=== PATIENT | male | born 1995 | race Caucasian/White ===

== ENCOUNTER 2017-02-25 03:30 | Emergency (ER) | payer BC ==
[~2017-02-25] VITALS: Ht 180.3 cm; Wt 79.4 kg
[2017-02-25] MEDS ORDERED: NS IV 1000 ML 1,000 ML IV ONE (03:42)
[2017-02-25] MEDS ORDERED: CITA10TA12 PO (03:43)
[2017-02-25] MEDS ORDERED: ONDANSETRON 4 MG/2 ML (SDV) Z0FRAN IVP ONE (03:45)
[2017-02-25 03:57] LABS: BASOPHILS % (AUTO) 0 % (0-10); EOSINOPHILS % (AUTO) 0 % (0-10); LYMPHOCYTES # (AUTO) 2.1 X 10^3 (1.0-4.0); LYMPHOCYTES % (AUTO) 23 % (12-44); MEAN CORPUSCULAR HEMOGLOBIN 29 PG (25-34); MEAN CORPUSCULAR HGB CONC 35 G/DL (32-36); MEAN CORPUSCULAR VOLUME 80 FL (80-99); MEAN PLATELET VOLUME 10.6 FL (7.4-10.4); MONOCYTES # (AUTO) 0.4 X 10^3 (0.0-1.0); MONOCYTES % (AUTO) 5 % (0-12); NEUTROPHILS # (AUTO) 6.7 X 10^3 (1.8-7.8); NEUTROPHILS % (AUTO) 72 % (42-75); PLATELET COUNT 281 10^3/uL (130-400); RED BLOOD COUNT 5.13 10^6/uL (4.35-5.85); RED CELL DISTRIBUTION WIDTH 12.7 % (10.0-14.5); WHITE BLOOD COUNT 9.3 10^3/uL (4.3-11.0)
[2017-02-25] MEDS ORDERED: LORazepam INJ 2 MG/ML (ATIVAN) VIAL IVP ONE (04:00)
--- NOTE | 2017-02-25 04:11 | ED Psychosocial ---
General Chief Complaint: Psych/Social Disorder Stated Complaint: COMBINED MED & ALCOHOL,HAVING RXN Nursing Triage Note: C/O ANXIETY /P ETOH INTAKE WITH CELEXA Source: patient Exam Limitations: no limitations History of Present Illness Time seen by provider: 03:32 Initial Comments This 22-year-old male patient presents to the emergency room with anxiousness and hyperventilation after drinking an excessive amount of beer and hard alcoholic mixed drinks while taking Celexa. He also has nausea and vomiting. He takes the Celexa for depression, anxiety, and neurologic tics. Allergies and Home Medications Allergies Coded Allergies: No Known Drug Allergies (Unverified , 02/25/17) Home Medications Citalopram Hydrobromide 10 Mg Tablet, Unknown Dose PO, (Reported) Constitutional: no symptoms reported EENTM: no symptoms reported Respiratory: no symptoms reported Cardiovascular: no symptoms reported Gastrointestinal: see HPI Genitourinary: no symptoms reported Musculoskeletal: no symptoms reported Skin: no symptoms reported Psychiatric/Neurological: See HPI Past [id number] Hx Patient Social History Alcohol Use: Rarely Uses Recreational Drug Use: No Smoking Status: Never a Smoker 2nd Hand Smoke Exposure: Yes Recent Foreign Travel: No Contact w/Someone Who Travel: No Recent Infectious Disease Expo: No Recent Hopitalizations: No Immunizations Up To Date Tetanus Booster (TDap): Less than 5yrs PED Vaccines UTD: Yes Seasonal Allergies Seasonal Allergies: No Surgeries HX Surgeries: Yes Surgeries: Appendectomy, Tonsillectomy Respiratory Hx Respiratory Disorders: No Cardiovascular Hx Cardiac Disorders: No Neurological Hx Neurological Disorders: Yes (tics) Genitourinary Hx Genitourinary Disorders: No Gastrointestinal Hx Gastrointestinal Disorders: No Musculoskeletal Hx Musculoskeletal Disorders: No Endocrine Hx Endocrine Disorders: No HEENT HX ENT Disorders: No Cancer Hx Cancer: No Psychosocial Hx Psychiatric Problems: Yes Behavioral Health Disorders: Anxiety, Depression Integumentary HX Skin/Integumentary Disorder: No Blood Transfusions Hx Blood Disorders: No Physical Exam Vital Signs Vital Sign - Last 12Hours 02/25/17 03:43 Temp 97.9 Pulse 81 Resp 24 B/P (MAP) 125/62 Pulse Ox 99 O2 Delivery Room Air Capillary Refill : Less Than 3 Seconds General Appearance: WD/WN, moderate distress (rather anxious) HEENT: PERRL/EOMI, normal ENT inspection Neck: normal inspection Respiratory: lungs clear, normal breath sounds, no respiratory distress, no accessory muscle use Cardiovascular: regular rate, rhythm, no edema, no murmur Gastrointestinal: non tender, soft Extremities: normal inspection, no pedal edema 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, no motor/sensory deficits, alert, oriented x 3, other (anxious, hyperventilating) Appearance/Memory: appropriate appearance Behavior/Eye Contact: cooperative, good eye contact, normal speech Skin: normal color, warm/dry Progress/Results/Core Measures Results/Orders Lab Results Laboratory Tests Test 02/25/17 03:43 02/25/17 04:55 Range/Units White Blood Count 9.3 4.3-11.0 10^3/uL Red Blood Count 5.13 4.35-5.85 10^6/uL Hemoglobin 14.6 13.3-17.7 G/DL Hematocrit 41 40-54 % Mean Corpuscular Volume 80 80-99 FL Mean Corpuscular Hemoglobin 29 25-34 PG Mean Corpuscular Hemoglobin Concent 35 32-36 G/DL Red Cell Distribution Width 12.7 10.0-14.5 % Platelet Count 281 130-400 10^3/uL Mean Platelet Volume 10.6 H 7.4-10.4 FL Neutrophils (%) (Auto) 72 42-75 % Lymphocytes (%) (Auto) 23 12-44 % Monocytes (%) (Auto) 5 0-12 % Eosinophils (%) (Auto) 0 0-10 % Basophils (%) (Auto) 0 0-10 % Neutrophils # (Auto) 6.7 1.8-7.8 X 10^3 Lymphocytes # (Auto) 2.1 1.0-4.0 X 10^3 Monocytes # (Auto) 0.4 0.0-1.0 X 10^3 Eosinophils # (Auto) 0.0 0.0-0.3 10^3/uL Basophils # (Auto) 0.0 0.0-0.1 10^3/uL Sodium Level 144 135-145 MMOL/L Potassium Level 3.1 L 3.6-5.0 MMOL/L Chloride Level 111 H 98-107 MMOL/L Carbon Dioxide Level 18 L 21-32 MMOL/L Anion Gap 15 H 5-14 MMOL/L Blood Urea Nitrogen 17 7-18 MG/DL Creatinine 1.03 0.60-1.30 MG/DL Estimat Glomerular Filtration Rate > 60 BUN/Creatinine Ratio 17 Glucose Level 102 70-105 MG/DL Calcium Level 9.1 8.5-10.1 MG/DL Magnesium Level 2.0 1.8-2.4 MG/DL Total Bilirubin 1.4 H 0.1-1.0 MG/DL Aspartate Amino Transf (AST/SGOT) 32 5-34 U/L Alanine Aminotransferase (ALT/SGPT) 27 0-55 U/L Alkaline Phosphatase 126 40-136 U/L Total Protein 6.6 6.4-8.2 G/DL Albumin 4.3 3.2-4.5 G/DL TSH [place] Testing 2.20 0.35-4.94 UIU/ML Serum Alcohol 141 H <10 MG/DL Urine Opiates Screen NEGATIVE NEGATIVE Urine Oxycodone Screen NEGATIVE NEGATIVE Urine Methadone Screen NEGATIVE NEGATIVE Urine Propoxyphene Screen NEGATIVE NEGATIVE Urine Barbiturates Screen NEGATIVE NEGATIVE Ur Tricyclic Antidepressants Screen NEGATIVE NEGATIVE Urine Phencyclidine Screen NEGATIVE NEGATIVE Urine Amphetamines Screen NEGATIVE NEGATIVE Urine Methamphetamines Screen NEGATIVE NEGATIVE Urine Benzodiazepines Screen NEGATIVE NEGATIVE Urine Cocaine Screen NEGATIVE NEGATIVE Urine Cannabinoids Screen NEGATIVE NEGATIVE My Orders Orders - ZACH BLAIR MD Alcohol (02/25/17 03:42) Cbc With Automated Diff (02/25/17 03:42) Comprehensive Metabolic Panel (02/25/17 03:42) Drug Screen Stat (Urine) (02/25/17 03:42) Magnesium (02/25/17 03:42) Thyroid Analyzer (02/25/17 03:42) Saline Lock/Iv-Start (02/25/17 03:42) Ns Iv 1000 Ml (Sodium Chloride 0.9%) (02/25/17 03:42) Ondansetron Injection (Zofran Injectio (02/25/17 03:45) Lorazepam Injection (Ativan Injection) (02/25/17 04:00) Potassium Chloride (Tablet) (Klor Con Ta (02/25/17 04:30) Potassium Chloride (Tablet) (Klor Con Ta (02/25/17 04:30) Medications Given in ED Current Medications Medications Dose Ordered Sig/Maximo Route Start Time Stop Time Status Last Admin Dose Admin Lorazepam 0.5 mg ONCE ONCE IVP 02/25/17 04:00 02/25/17 04:01 DC 02/25/17 03:59 0.5 MG Ondansetron HCl 8 mg ONCE ONCE IVP 02/25/17 03:45 02/25/17 03:46 DC 02/25/17 03:51 8 MG Potassium Chloride 30 meq ONCE ONCE PO 02/25/17 04:30 02/25/17 04:31 DC 02/25/17 04:24 30 MEQ Sodium Chloride 1,000 ml @ 0 mls/hr Q0M ONCE IV 02/25/17 03:42 02/25/17 03:44 DC 02/25/17 03:50 0 MLS/HR Vital Signs/I&O Vital Sign - Last 12Hours 02/25/17 03:43 Temp 97.9 Pulse 81 Resp 24 B/P (MAP) 125/62 Pulse Ox 99 O2 Delivery Room Air Blood Pressure Mean: 83 Progress Note #1: Time: 04:11 Progress Note Patient is receiving a liter of IV fluids. Labs are pending. Ativan 0.5 mg was administered to help him relax. Zofran was administered for nausea. Progress Note #2: Time: 05:29 Progress Note Anxious anxiousness resolved. Potassium was replaced orally. Patient was dismissed in good condition. Departure Impression Impression: Primary Impression: Alcohol intoxication Qualified Codes: F10.129 - Alcohol abuse with intoxication, unspecified Additional Impressions: Anxiety Hypokalemia Disposition: 01 HOME, SELF-CARE Condition: Improved Departure-Patient Inst. Decision time for Depature: 05:30 Referrals: [facility] (PCP) Primary Care Physician Patient Instructions: ALCOHOL AND SUBSTANCE ABUSE Add. Discharge Instructions: Avoid excessive alcohol consumption in the future. Return to care if symptoms worsen. All discharge instructions reviewed with patient and/or family. Voiced understanding. ZACH BLAIR MD Feb 25, 2017 04:11
[2017-02-25 04:12] LABS: ALANINE AMINOTRANSFERASE 27 U/L (0-55); ALBUMIN 4.3 G/DL (3.2-4.5); ALCOHOL 141 MG/DL (<10); ANION GAP 15 MMOL/L (5-14); ASPARTATE AMINO TRANSFERASE 32 U/L (5-34); BILIRUBIN,TOTAL 1.4 MG/DL (0.1-1.0); BLOOD UREA NITROGEN 17 MG/DL (7-18); BUN/CREATININE RATIO 17; CALCIUM 9.1 MG/DL (8.5-10.1); CARBON DIOXIDE 18 MMOL/L (21-32); CHLORIDE 111 MMOL/L (98-107); CREATININE SERUM 1.03 MG/DL (0.60-1.30); GFR ESTIMATED > 60; GLUCOSE 102 MG/DL (70-105); POTASSIUM 3.1 MMOL/L (3.6-5.0); SODIUM 144 MMOL/L (135-145); TOTAL PROTEIN 6.6 G/DL (6.4-8.2)
[2017-02-25] MEDS ORDERED: KCL 10 MEQ TAB (MICRO K) PO ONE ×2 (04:30)
[2017-02-25 05:33] VITALS: BP 104/58
== END 2017-02-25 05:33 | disposition home or self-care (01) ==
LOC: EDUNIT# 03:30 → ER 03:33
DX: F10.129 Alcohol abuse with intoxication, unspecified (principal); F41.9 Anxiety disorder, unspecified; E87.6 Hypokalemia; R11.2 Nausea with vomiting, unspecified; Y90.6 Blood alcohol level of 120-199 mg/100 ml; Z79.899 Other long term (current) drug therapy
CPT/HCPCS: 36415; 80053; 80306; 80320; 83735; 84443; 85025; 96361; 96374; 96375